=== PATIENT | female | born 1970 | race Caucasian/White ===

== ENCOUNTER 2020-07-19 16:27 | Outpatient (REF) | payer MEDICARE, MEDICAID, SELFPAY | END 2020-07-19 16:28 | disposition home or self-care (01) | LOC: HO.LAB 16:27 | PROVIDERS: Visit Provider Internal Medicine | DX: Z20.822 Contact with and (suspected) exposure to COVID-19 (principal) | CPT/HCPCS: 36415; C9803; U0003 ==

== ENCOUNTER 2021-11-04 16:02 | Emergency (ER) | payer MEDICARE, MEDICAID, SELFPAY ==
[2021-11-04 16:50] VITALS: BP 121/102; PULSE 70; RESP 18; TEMP 35.8; O2SAT 98; BMI 29.0
--- NOTE | 2021-11-04 19:28 | ED_ITS ---
HPI - Extremity Problem General Chief complaint: Extremity Injury, Upper Stated complaint: Right arm pain Time Seen by Provider: 11/04/21 18:11 Source: patient Mode of arrival: ambulatory Limitations: no limitations History of Present Illness HPI Narrative: Patient is a 51 year old female presenting to the emergency department today with chronic right sided neck pain and right arm pain. Patient states that for the last 6 months, she has been dealing with right sided neck pain that radiates into the right arm with numbness and tingling. Patient states that she has been following with her PCP for this and she has been getting a muscle relaxer and is waiting for an orthopedic provider to get ahold of her. Patient denies any dizziness, lightheadedness, abdominal pain, nausea, vomiting, fever, chills, blurry vision, double vision, loss of vision, chest pain, difficulty breathing, shortness of breath, back pain, night sweats, pain with urination, increased urinary frequency, increased urinary urgency, blood in her urine or stool, syncope or a near syncopal episode, recent trauma or falls, bowel incontinence, bladder incontinence, bowel retention, bladder retention, or any other complaints at this time. MD Complaint: extremity pain Onset (ago): month(s) Pain Consistency: intermittent Location: right and upper extremity Severity scale (1-10): 5 Quality: dull Radiation: distal Relieving factors: nothing Related Data Previous Rx's Medication Instructions Recorded prednisone 20 mg tablet 20 mg PO DAILY #7 tab 11/04/21 Allergies Allergy/AdvReac Type Severity Reaction Status Date / Time Iodinated Contrast Media Allergy Intermediate HIVES Verified 11/04/21 19:27 [CONTRAST, IV] iodine [IODINE] Allergy Intermediate HIVES Verified 11/04/21 19:27 morphine [MORPHINE] Allergy Intermediate HIVES Verified 11/04/21 19:27 Review of Systems Constitutional: Constitutional: Reports no additional constitutional complaints, Denies chills, Denies fever(s) and Denies night sweats Eyes: Eyes: Reports no additional eye complaints, Denies blurry vision, Denies change in vision, Denies diplopia, Denies eye discharge, Denies loss of vision and Denies eye pain ENT: Denies dizziness Cardiovascular: Cardiovascular: Reports no additional cardiovascular complain ts, Denies chest pain, Denies lightheadedness, Denies Loss of Consciousness and Denies dyspnea Respiratory: Respiratory: Reports no additional respiratory complaints and Denies dyspnea Gastrointestinal: Gastrointestinal: Reports no additional gastrointestinal complaints, Denies abdominal pain, Denies melena, Denies hematochezia, Denies change in bowel habits and Denies change in stool character Genitourinary: Genitourinary: Denies hematuria, Denies urinary frequency, Denies dysuria, Denies urinary incontinence, Denies urinary hesitancy and Denies urinary urgency Musculoskeletal: Musculoskeletal: Reports no additional musculoskeletal complaints, Denies numbness and Denies tingling Neurologic: Denies dizziness, Denies loss of vision, Denies numbness and Denies tingling Psychiatric: Psychiatric: Reports no additional psychiatric complaints Endocrine: Endocrine: Reports no additional endocrine complaints Hematologic/Lymphatic: Hematologic/Lymphatic: Reports no additional hematologi c/lymphatic complaints Allergic/Immunologic: Allergic/Immunologic: Reports no additional allergic/immunologic complaints PMFSH Past Medical History Attestation statement: The following information was validated with the patient. Source: old records reviewed Medical History (Updated 11/04/21 @ 19:36 by RUPINDER Cheney) Anxiety Depression Social History Social History Advance Directives: No Advance Directives Information Provided: No Physical Exam Vital Signs: Vital Signs: Last Vital Signs Temp 98 F 11/04/21 19:31 Pulse 62 11/04/21 19:31 Resp 14 11/04/21 19:31 BP 113/65 11/04/21 19:31 Pulse Ox 100 11/04/21 19:31 BMI result Body Mass Index 29.0 Const: General: cooperative, no acute distress, alert and awake Nutritional Appearance: well nourished Orientation/consciousness: patient oriented x3 Limitations: no limitations HEENT: Head: Yes normal to inspection and Yes atraumatic Ears: hearing grossly normal bilaterally and external ears normal General nose exam: Normal external nose present, no nasal discharge noted and no epistaxis Face and sinus: Yes normal facial exam, No abrasion and No laceration Mouth: Normal oral and palatal mucosa present, no drooling and no muffled voice Eyes: General: appearance normal, both eyes and all related structures Periorbital: periorbital findings normal Eyelids: Yes eyelids normal Conjunctivae: conjunctivae normal Pupils: Equal, round and reactive pupils present EOM: EOMs intact bilaterally Neck: Neck: Yes normal visual inspection, Yes full ROM and Yes no lymphadenopathy Chest: Chest palpation & inspection: normal inspection of the chest Resp: Effort & Inspection: normal respiratory effort and able to speak in complete sentences Auscultation: clear to auscultation bilaterally Cardio: Rate: regular rate Rhythm: regular rhythm GI: Inspection: Yes normal to inspection Neuro: General: patient oriented x3 and moves all extremities Cranial nerves: Yes Equal, round and reactive pupils present Cognition (Neuro): normal cognition Motor exam (neuro): 5/5 motor strength present throughout Sensory Exam: Normal double simultaneous stimulation for sensation Coordination: [id number] test normal Extrem: General: Yes normal to inspection, Yes full ROM and Yes capillary refill normal Psych: Appearance: grossly normal Mental Status: mental status grossly normal Affect: normal affect Attitude: cooperative Thought process: Normal thought process present Thought content: Normal thought content present Insight: Good insight present (Psych) NIH Stroke Scale Internal: Initial- Upon Arrival Time: 18:11 Level of Consciousness: Alert Level of Consciousness Questions: Answers both questions correctly Level of Consciousness Commands: Performs both tasks correctly Best Gaze: Normal Visual: No visual loss Facial Palsy: Normal Motor Arm (Right): No drift Motor Arm (Left): No drift Motor Leg (Right): No drift Motor Leg (Left): No drift Limb Ataxia: Absent Sensory: Normal Best Language: No aphasia Dysarthia: Normal Extinction and Inattention: No abnormality Score: 0 MDM - Extremity (Nontraumatic) MDM Narrative Medical decision making narrative: Patient is a 51 year old female presenting to the emergency department today with right arm and neck pain. Patient's physical exam was unremarkable, inclduing a normal NIH scale. I explained my physical exam findings to the patient. I answered all questions asked by the patient. Patient received IM solu-medrol and Toradol which she stated helped her symptoms significantly. I stressed the importance of the patient taking her medication as prescribed. I stressed the importance of the patient following up with her primary care provider and orthopedist. I stressed the importance of the patient returning to the emergency department immediately if her symptoms were to worsen or if she were to develop any dizziness, shortness of breath, difficulty breathing, chest pain, blurry vision, loss of vision, nausea, vomiting, abdominal pain, fever, chills, back pain, or any other complaints. Patient verbalized agreement and understanding with this treatment plan and discharge. Differential Diagnosis Differential diagnosis: Unlikely gout (cervical radiculopathy) Medical Records Attestation: I reviewed the patient's medical records. Discharge Plan Discharge Clinical Impression: Cervical radiculopathy Patient Disposition: Home, Self-Care Instructions: Cervical Radiculopathy (ED) Additional Instructions: Follow up with your primary care provider and an orthopedic provider. Return to the emergency department immediately if your symptoms worsen or if you develop any dizziness, shortness of breath, difficulty breathing, chest pain, blurry vision, loss of vision, nausea, vomiting, abdominal pain, fever, chills, back pain, or any other complaints. Prescriptions: New prednisone 20 mg tablet 20 mg PO DAILY Qty: 7 0RF Referrals: [facility] [Provider Group] (Follow up with an orthopedic provider. ) Jaun Vasques MD [Primary Care Provider] - (Follow up with your PCP. ) Interventions: ED Discharge Assessment Last Done: 11/04/21 20:05 Discharge Date/Time: 11/04/21 20:08 Print Language: Bulgarian
[2021-11-04 19:31] VITALS: BP 113/65; PULSE 62; RESP 14; TEMP 36.6; O2SAT 100
[2021-11-04] MEDS: Ketorolac Tromethamine 15 MG/ML VIAL IM (19:55)
[2021-11-04] MEDS: methylPREDNISolone Sod Succ 125 MG/2 ML VIAL 120 MG IM (19:56)
== END 2021-11-04 20:08 | disposition home or self-care (01) ==
PROVIDERS: Emergency Provider Emergency Medicine; PCP Internal Medicine
DX: M54.12 Radiculopathy, cervical region (principal)
CPT/HCPCS: 96372; 99284; J1885; J2930

== ENCOUNTER 2021-11-22 08:33 | Outpatient (REF) | payer MEDICARE, MEDICAID, SELFPAY ==
--- NOTE | ~2021-11-22 | XR_ITS ---
EXAMINATION: XR SHOULDER, RIGHT CLINICAL INFORMATION: Right shoulder pain. COMPARISON: None. TECHNIQUE: Three views of the right shoulder. FINDINGS: There is no evidence of acute fracture or dislocation of the right shoulder. No significant spurring about the glenohumeral joint is identified and no evidence of calcific tendinitis. Acromioclavicular joint appears unremarkable. No widening of the coracoclavicular space. XR/XR shoulder RT min 2V IMPRESSION: No significant bony abnormality of the right shoulder identified.
== END 2021-11-22 08:34 | disposition home or self-care (01) ==
LOC: HO.HOSX 08:33
PROVIDERS: PCP Internal Medicine; Visit Provider Physician Assistant
DX: M54.12 Radiculopathy, cervical region (principal); M25.511 Pain in right shoulder
CPT/HCPCS: 73030; 99202

== ENCOUNTER 2021-11-24 17:17 | Emergency (ER) | payer MEDICARE, MEDICAID, SELFPAY ==
[2021-11-24 17:21] VITALS: BP 121/87; PULSE 94; RESP 18; TEMP 37.2; O2SAT 96; BMI 30.6
[2021-11-24 17:41] LABS: COVID-19 Test Positive (Negative); IDNOW Serial# 16C4AD1C
[2021-11-24 17:56] LABS: Influenza A Negative (Negative); Influenza B2 Negative (Negative)
--- NOTE | 2021-11-24 18:07 | ED_ITS ---
HPI - URI/Sore Throat General Chief Complaint: Upper Respiratory Symptoms Stated Complaint: COVID Symptoms Time Seen by Provider: 11/24/21 18:07 Source: patient Mode of arrival: ambulatory Limitations: no limitations History of Present Illness HPI Narrative: 51 y/o female with history of cervical radiculopathy recently started on prednisone who presents to the ER after she developed COVID symptoms last night. She reports starting with the sore throat last night, did not think much of it but woke up this morning with body aches and chills. She states that COVID recently went through her house about 3 weeks ago with her partner and children but she never got it. She is unvaccinated. She also had a family member stay with her this last week from [place] and is concerned they may have brought illness into the home. She denies any shortness of breath or chest pain but has an intermittent dry cough. MD elicited complaint: cough and other (Body aches and sore throat) Onset (ago): day(s) (1) Consistency: constant Severity: moderate Description of mucous: clear Able to tolerate fluids by mouth: Yes Exacerbating factors: exertion Relieving factors: nothing Context: sick contacts Associated symptoms: chills, myalgias, headache, sore throat and cough Treatments prior to arrival: none Related Data Home Medications Medication Instructions Recorded Confirmed albuterol sulfate 90 mcg/actuation 0 mcg INHALATION 11/22/21 aerosol inhaler (Ventolin HFA) Previous Rx's Medication Instructions Recorded prednisone 20 mg tablet 20 mg PO DAILY #7 tab 11/04/21 Allergies Allergy/AdvReac Type Severity Reaction Status Date / Time Iodinated Contrast Media Allergy Intermediate HIVES Verified 11/24/21 17:21 [CONTRAST, IV] iodine [IODINE] Allergy Intermediate HIVES Verified 11/24/21 17:21 morphine [MORPHINE] Allergy Intermediate HIVES Verified 11/24/21 17:21 Review of Systems Review of Systems: Constitutional: No Fever, +Chills ENT/Mouth: +sore throat, No Rhinorrhea, No Swallowing Difficulty Eyes: No Eye Pain, No Swelling, No Redness Cardiovascular: No Chest Pain, No SOB, No Orthopnea, No Edema Respiratory: No Cough, No Sputum, No Wheezing, No dyspnea Gastrointestinal: No Nausea, No Vomiting, No Diarrhea, No abdominal Pain Genitourinary: No Dysuria, No Urinary Frequency, No Hematuria Musculoskeletal: No joint pain, + Myalgias Skin: No Skin Lesions, No rash Neuro: No Weakness, No Numbness, No Dizziness, + Headache Psych: + Anxiety/Panic, No Depression Heme/Lymph: No Lymphadenopathy PMFSH Past Medical History Medical History Anxiety Depression Social History Social History Advance Directives: No Advance Directives Information Provided: No Physical Exam Vital Signs: Vital Signs: Last Vital Signs Temp 98.9 F 11/24/21 17:21 Pulse 94 11/24/21 17:21 Resp 18 11/24/21 17:21 BP 121/87 11/24/21 17:21 Pulse Ox 96 11/24/21 17:21 BMI result Body Mass Index 30.6 Appearance: Alert. Oriented X3. No acute distress. Eyes: Pupils equal, round and reactive to light. ENT: Pharynx with mild generalized erythema, no tonsillar exudate or swelling. Neck: Normal inspection. Neck supple. CVS: Normal heart rate and rhythm. Pulses normal. Respiratory: No respiratory distress. Breath sounds normal. Skin: Skin warm and dry. Normal skin color. Normal skin turgor. No rashes. Extremities: No lower extremity edema. No calf tenderness. Neuro: Oriented X 3. Grossly normal, nonfocal. Course Course Course Narrative: 51-year-old female with history of cervical radiculopathy who presents to the ER with sore throat, body aches, chills, intermittent dizziness that started yesterday. She generally feels unwell and her biggest complaint is diffuse body aches. She has not taken Motrin or Tylenol for this as of yet. She denies any fevers, chest pain, shortness of breath. She does have known COVID contacts in the last couple of weeks and she is unvaccinated. Her vital signs are normal on arrival in her exam is unremarkable. Will get flu swab and COVID swab. Reevaluation(s) Reevaluation #1: Patient is found to be COVID positive. She was counseled on her diagnosis and management. Return precautions were discussed. Stable for discharge home with supportive care. MDM - URI/Sore Throat Lab Data Labs: Lab Results 11/24/21 Range/Units 17:24 Influenza Type A (ADAM) Negative (Negative) Influenza Type B (ADAM) Negative (Negative) Influenza A & B Note See Note Critical Care Time Critical Care Time Critical Care Time: No Discharge Plan Discharge Clinical Impression: COVID-19 Patient Disposition: Home, Self-Care Instructions: Covid-19 Viral Syndrome and Novel Coronavirus (ED) Hey/Ath Additional Instructions: You were found to be COVID-19 POSITIVE today. Your exam and oxygen levels were normal. Rest. Drink plenty of fluids. Do not go out in public for the next 10 days. Take over the counter cold/flu medications as needed for your symptoms. Take Tylenol and/or Motrin as needed for fevers and body aches. Follow up with your doctor this week. If you develop new or worsening symptoms call 911 or come back to the ER for further evaluation. Prescriptions: No Action prednisone 20 mg tablet 20 mg PO DAILY Qty: 7 0RF albuterol sulfate [Ventolin HFA] 90 mcg/actuation HFA aerosol inhaler 0 mcg inhalation 0RF Stand Alone Forms: Work/School Release
== END 2021-11-24 19:07 | disposition home or self-care (01) ==
PROVIDERS: Emergency Provider Emergency Medicine Emergency Medical Services; PCP Internal Medicine
DX: U07.1 COVID-19 (principal); J02.9 Acute pharyngitis, unspecified; M79.10 Myalgia, unspecified site; R51.9 Headache, unspecified; R05.9 Cough, unspecified
CPT/HCPCS: 87502; 87635; 99282; 99283

== ENCOUNTER 2021-12-23 11:51 | Outpatient (REF) | payer MEDICARE, MEDICAID, SELFPAY ==
--- NOTE | ~2021-12-23 | XR_ITS ---
EXAMINATION: XR CERVICAL SPINE CLINICAL INFORMATION: Spondylosis without myelopathy or radiculopathy. COMPARISON: None TECHNIQUE: 3 views of the cervical spine were obtained. FINDINGS: There are no prevertebral soft tissue or bony abnormalities demonstrated. No compression fractures or subluxations are identified. Alignment is maintained at the atlanto-axial articulation. The disc spaces are preserved. No endplate changes are seen. The prevertebral soft tissues are normal. The foramina are patent. XR/XR cervical spine 3V IMPRESSION: Unremarkable cervical spine examination.
== END 2021-12-23 11:52 | disposition home or self-care (01) ==
LOC: HO.XRAY 11:51
PROVIDERS: PCP Internal Medicine; Visit Provider Nurse Practitioner Family
DX: M54.12 Radiculopathy, cervical region (principal); M47.812 Spondylosis without myelopathy or radiculopathy, cervical region; M25.511 Pain in right shoulder; R20.0 Anesthesia of skin; R20.2 Paresthesia of skin
CPT/HCPCS: 72040; 99202